=== PATIENT | male | born 1985 | race Caucasian/White ===

== ENCOUNTER 2017-08-05 16:11 | Emergency (ER) | payer OTHER ==
[~2017-08-05] VITALS: Ht 170.2 cm; Wt 111.1 kg
[2017-08-05 16:15] VITALS: BP_SYST 137
[2017-08-05] MEDS ORDERED: ASPIRIN 81 MG TAB.CHEW PO ONE (17:00)
[2017-08-05 17:09] LABS: BASOPHILS # (AUTO) 0.1 K/uL (0.0-0.2); BASOPHILS % (AUTO) 0.7 % (0.0-2.0); EOSINOPHILS # (AUTO) 0.2 K/uL (0.0-0.4); EOSINOPHILS % (AUTO) 2.5 % (0.0-4.0); HEMATOCRIT 43.8 % (36-54); HEMOGLOBIN 14.6 g/dL (14.0-18.0); LYMPHOCYTES # (AUTO) 2.6 K/uL (1.0-5.5); LYMPHOCYTES % (AUTO) 29.5 % (20.5-51.5); MEAN CORPUSCULAR HEMOGLOBIN 29 pg (27-31); MEAN CORPUSCULAR HGB CONC 33 % (32-36); MEAN CORPUSCULAR VOLUME 86 fL (79.0-98.0); MONOCYTES % (AUTO) 11.1 % (1.7-9.3); NEUTROPHILS # (AUTO) 4.9 K/uL (1.8-7.7); NEUTROPHILS % (AUTO) 56.2 % (40.0-70.0); PLATELET COUNT (AUTO) 226 K/uL (130-430); RED BLOOD CELL COUNT(AUTO) 5.07 MIL/uL (4.2-6.2); RED CELL DISTRIBUTION WIDTH 13.4 % (9.0-15.0); WHITE BLOOD COUNT (AUTO) 8.8 K/uL (4.8-10.8)
[2017-08-05 17:33] LABS: CALCIUM 9.4 mg/dL (8.4-11.0); CREATININE 1.02 mg/dL (0.55-1.30); POTASSIUM 3.9 mmol/L (3.5-5.1)
[2017-08-05 17:34] LABS: INR 0.9 (0.80-1.20); PROTHROMBIN TIME 9.4 SECS (9.5-12.5)
[2017-08-05 17:37] LABS: TOTAL BILIRUBIN 0.6 mg/dL (0.0-1.0); URIC ACID 8.4 mg/dL (2.4-7.0)
[2017-08-05 17:45] LABS: BILIRUBIN,URINE NEGATIVE (NEGATIVE); BLOOD, URINE NEGATIVE (NEGATIVE); CLARITY/URINE CLEAR (CLEAR); COLOR,URINE YELLOW (YELLOW); GLUCOSE,URINE NEGATIVE (NEGATIVE); KETONES,URINE NEGATIVE (NEGATIVE); LEUKOCYTE ESTERASE ,URINE NEGATIVE (NEGATIVE); NITRITE, URINE NEGATIVE (NEGATIVE); PROTEIN URINE NEGATIVE (NEGATIVE); UROBILINOGEN,URINE 0.2 (0.2-1.0)
[2017-08-05 18:07] VITALS: BP_SYST 137
[2017-08-07 01:36] LABS: CHLAMYDIA TRACHOMATIS NAA Negative (Negative); NEISSERIA GONORRHOEAE NAA Negative (Negative)
== END 2017-08-05 18:02 | disposition home or self-care (01) ==
LOC: SED 16:11
DX: R07.89 Other chest pain (principal); R20.2 Paresthesia of skin; F17.200 Nicotine dependence, unspecified, uncomplicated; Z71.6 Tobacco abuse counseling; Z88.1 Allergy status to other antibiotic agents
CPT/HCPCS: 36415; 71010; 80053; 81003; 83735-TC; 84484; 84550-TC; 85025; 85610-TC; 85730-TC; 86592; 87491; 87591; 93005; 99285